=== PATIENT | male | born 2000 ===

== ENCOUNTER 2019-11-17 18:37 | Emergency (ER) | payer OTHER ==
--- NOTE | 2019-11-17 19:19 | EDM.PDOCBH ---
ED HPI GENERAL MEDICAL PROBLEM - General Chief Complaint: Behavioral/Psych Stated Complaint: SUICIDAL IDEATIONS Time Seen by Provider: 11/17/19 19:09 Source of Information: Reports: Patient, RN History Limitations: Reports: No Limitations - History of Present Illness INITIAL COMMENTS - FREE TEXT/NARRATIVE: 19 yo NA male here with mental health concerns. Apparently is not connected currently in this regard and didn't know where to turn. Has had some suicidal thoughts, but no plan. No ingestions. Onset: Gradual Duration: Week(s): Location: Reports: Head (psych) Quality: Reports: Other (no physical pain) Severity: Moderate Improves with: Reports: None Worsens with: Reports: Other (stress) Context: Reports: Other (See HPI) Associated Symptoms: Reports: No Other Symptoms Treatments HEAD OF ENGLISH: Reports: Other (see below) (none) - Related Data Allergies Allergy/AdvReac Type Severity Reaction Status Date / Time No Known Allergies Allergy Verified 11/17/19 20:07 Home Meds: Home Meds NK [No Known Home Meds] 11/17/19 [History] ED ROS GENERAL - Review of Systems Review Of Systems: Unable To Obtain (left AMA) Reason Not Obtained: left AMA Psychiatric: Reports: Anxiety, Suicidal Ideation, Other (? ADD/tobacco addiction) ED EXAM, BEHAVIORAL HEALTH - Physical Exam Exam: Not Obtained (left AMA before exam) COURSE, BEHAVIORAL HEALTH COMP - Course Vital Signs: Last Vital Signs Temp 37.3 C 11/17/19 18:37 Pulse 91 11/17/19 18:37 Resp 18 11/17/19 18:37 BP 129/73 11/17/19 18:37 Pulse Ox 97 11/17/19 18:37 Departure - Departure Time of Disposition: 19:40 Disposition: Against Medical Advice 07 Condition: Fair Clinical Impression: Mental health assessment declined Clinical Impression: (Ruled Out): ADD (attention deficit disorder) - Discharge Information *PRESCRIPTION DRUG MONITORING PROGRAM REVIEWED*: Not Applicable *COPY OF PRESCRIPTION DRUG MONITORING REPORT IN PATIENT JOCELIN: Not Applicable Referrals: PCP,None [Primary Care Provider] - Forms: ED Department Discharge Sepsis Event Note (ED) - Focused Exam Vital Signs: Vital Signs Temp Pulse Resp BP Pulse Ox 11/17/19 18:37 37.3 C 91 18 129/73 97
== END 2019-11-17 19:40 | disposition left against medical advice (07) ==
LOC: FB.ED 18:37
DX: Z53.21 Procedure and treatment not carried out due to patient leaving prior to being seen by health care provider (principal)